=== PATIENT | male | born 1990 | race Caucasian/White ===

== ENCOUNTER 2016-07-29 20:21 | Emergency (ER) | payer SELFPAY ==
[~2016-07-29 20:21] MED LIST: CEPH500 PO; SULF1TAB47 PO; ULTR50TA PO; Z.0.NO CURRENT MEDS
[2016-07-29 20:24] VITALS: BP 113/79; PULSE 88; RESP 20; TEMP 98.2; O2SAT 99
== END 2016-07-29 22:17 | disposition left against medical advice (07) ==
LOC: PHED 20:21
DX: R10.32 Left lower quadrant pain (principal)
CPT/HCPCS: 99281